=== PATIENT | female | born 2000 | race Caucasian/White ===

== ENCOUNTER 2021-10-01 21:16 | Outpatient (REF) | payer OTHER, SELFPAY ==
[2021-10-01 22:41] LABS: Alanine Aminotransferase* 16 U/L (4-35); Aspartate Amino Transferase* 24 U/L (12-35); Cholesterol* 147 mg/dL (90-199); Triglycerides* 149 mg/dL (40-149)
[2021-10-01 22:42] LABS: HDL Cholesterol* 44 mg/dL (>=50); LDL Cholesterol Calculated 73 mg/dL (<100)
[2021-10-01 23:00] LABS: Basophils Absolute Auto 0.02 K/uL (0.00-0.30); Basophils Percent Auto 0.3 % (0.0-3.0); Eosinophils Absolute Auto 0.21 K/uL (0.00-0.50); Eosinophils Percent Auto 2.6 % (0.0-7.0); Hematocrit 40.5 % (33.0-51.0); Hemoglobin* 13.3 gm/dL (12.0-16.0); Immature Granulocytes Abs Auto 0.01 K/uL (0.00-0.30); Lymphocytes Absolute Auto 2.13 K/uL (0.90-2.90); Lymphocytes Percent Auto 26.7 % (20-44); Mean Corpuscular HGB Conc 33 gm/dL (32-36); Mean Corpuscular Hemoglobin 30 pg (26-34); Mean Corpuscular Volume 90 fL (80-100); Monocytes Percent Auto 4.8 % (0.0-11.0); Neutrophils Absolute Auto 5.23 K/uL (1.7-7.0); Neutrophils Percent Auto 65.5 % (42.0-72.0); Platelet Count* 288 K/uL (140-440); Red Blood Count 4.48 m/uL (4.00-5.20); White Blood Count* 7.98 K/uL (4.50-11.00)
[2021-10-01 23:02] LABS: Slide Review Reflex No
[2021-10-01 23:03] LABS: HCG Quantitative* < 2.39 mIU/mL
== END 2021-10-01 21:17 | disposition home or self-care (01) ==
LOC: NPINS 21:16
PROVIDERS: PCP Physician Assistant Medical
DX: Z79.899 Other long term (current) drug therapy (principal)
CPT/HCPCS: 80061; 84450; 84460; 84702; 85025

== ENCOUNTER 2021-10-28 21:28 | Outpatient (RCR) | payer OTHER, SELFPAY ==
[2021-10-28 22:07] LABS: Alanine Aminotransferase* 17 U/L (4-35); Aspartate Amino Transferase* 21 U/L (12-35); Cholesterol* 150 mg/dL (90-199)
[2021-10-28 22:08] LABS: HDL Cholesterol* 41 mg/dL (>=50); LDL Cholesterol Calculated 67 mg/dL (<100); Triglycerides* 211 mg/dL (40-149)
[2021-10-28 22:13] LABS: Basophils Absolute Auto 0.02 K/uL (0.00-0.30); Basophils Percent Auto 0.3 % (0.0-3.0); Eosinophils Percent Auto 2.5 % (0.0-7.0); Hematocrit 40.8 % (33.0-51.0); Hemoglobin* 13.7 gm/dL (12.0-16.0); Immature Granulocytes Abs Auto 0.04 K/uL (0.00-0.30); Lymphocytes Absolute Auto 1.79 K/uL (0.90-2.90); Lymphocytes Percent Auto 22.4 % (20-44); Mean Corpuscular HGB Conc 34 gm/dL (32-36); Mean Corpuscular Hemoglobin 30 pg (26-34); Mean Corpuscular Volume 89 fL (80-100); Monocytes Percent Auto 4.6 % (0.0-11.0); Neutrophils Absolute Auto 5.57 K/uL (1.7-7.0); Neutrophils Percent Auto 69.7 % (42.0-72.0); Platelet Count* 312 K/uL (140-440); Red Blood Count 4.57 m/uL (4.00-5.20); White Blood Count* 7.99 K/uL (4.50-11.00)
[2021-10-28 22:22] LABS: Slide Review Reflex No
[2021-10-29 16:57] LABS: HCG Qualitative Serum* Negative (Negative)
[2022-03-14 22:48] LABS: Ur HCG Qualitative* Negative (Negative)
== END 2022-09-29 23:00 | disposition home or self-care (01) ==
LOC: NPINS 21:28
PROVIDERS: Physician Assistant Medical; PCP Physician Assistant Medical; Visit Provider Physician Assistant Medical
DX: L70.0 Acne vulgaris (principal); Z13.6 Encounter for screening for cardiovascular disorders; Z79.899 Other long term (current) drug therapy
CPT/HCPCS: 80061; 81025; 84450; 84460; 84703; 85025

== ENCOUNTER 2021-11-26 15:34 | Outpatient (RCR) | payer OTHER, SELFPAY ==
[2021-11-26 15:59] LABS: Basophils Absolute Auto 0.02 K/uL (0.00-0.30); Basophils Percent Auto 0.3 % (0.0-3.0); Eosinophils Absolute Auto 0.22 K/uL (0.00-0.50); Eosinophils Percent Auto 3.1 % (0.0-7.0); Hematocrit 44.3 % (33.0-51.0); Hemoglobin* 14.8 gm/dL (12.0-16.0); Immature Granulocytes Abs Auto 0.02 K/uL (0.00-0.30); Lymphocytes Absolute Auto 1.79 K/uL (0.90-2.90); Lymphocytes Percent Auto 25.2 % (20-44); Mean Corpuscular HGB Conc 33 gm/dL (32-36); Mean Corpuscular Hemoglobin 30 pg (26-34); Mean Corpuscular Volume 89 fL (80-100); Monocytes Percent Auto 5.5 % (0.0-11.0); Neutrophils Absolute Auto 4.65 K/uL (1.7-7.0); Neutrophils Percent Auto 65.6 % (42.0-72.0); Platelet Count* 310 K/uL (140-440); RDW Coefficient of Variation % 11.7 % (11.5-15.5); Red Blood Count 4.97 m/uL (4.00-5.20); White Blood Count* 7.09 K/uL (4.50-11.00)
[2021-11-26 16:02] LABS: Slide Review Reflex No
[2021-11-26 16:14] LABS: Alanine Aminotransferase* 18 U/L (4-35); Aspartate Amino Transferase* 28 U/L (12-35); Cholesterol* 165 mg/dL (90-199); HDL Cholesterol* 41 mg/dL (>=50); LDL Cholesterol Calculated 89 mg/dL (<100); Triglycerides* 177 mg/dL (40-149)
[2021-11-26 16:23] LABS: HCG Qualitative Serum* Negative (Negative)
== END 2022-10-30 11:50 | disposition home or self-care (01) ==
LOC: LAB 15:34
PROVIDERS: PCP Physician Assistant Medical; Visit Provider Physician Assistant Medical
DX: Z79.899 Other long term (current) drug therapy (principal)
CPT/HCPCS: 36415; 80061; 84450; 84460; 84703; 85025

== ENCOUNTER 2021-12-24 16:04 | Outpatient (CLI) | payer OTHER, SELFPAY | END 2021-12-24 16:05 | disposition home or self-care (01) | LOC: FRMREF 01-03 10:10 | PROVIDERS: PCP Physician Assistant Medical; Visit Provider Physician Assistant Medical | DX: Z79.899 Other long term (current) drug therapy (principal) | CPT/HCPCS: 80061; 84450; 84460 ==

== ENCOUNTER 2022-03-14 14:19 | Outpatient (CLI) | payer OTHER, SELFPAY ==
[2022-03-14 22:03] LABS: Chloride* 106 mmol/L (96-114)
[2022-03-14 22:04] LABS: Potassium* 4.3 mmol/L (3.6-5.1); Sodium* 138 mmol/L (135-149)
[2022-03-14 22:06] LABS: Bilirubin Total* 0.3 mg/dL (0.1-1.5); Carbon Dioxide* 26 mmol/L (20-32); Creatinine* 0.8 mg/dL (0.5-1.5); Estimated Glomerular Filt Rate 106 ml/min
[2022-03-14 22:07] LABS: Alanine Aminotransferase* 17 U/L (4-35); Alkaline Phosphatase* 77 U/L (40-150); Aspartate Amino Transferase* 22 U/L (12-35); Blood Urea Nitrogen* 17 mg/dL (5-24); Glucose* 139 mg/dL (60-115)
[2022-03-14 22:08] LABS: Calcium* 9.2 mg/dL (8.4-10.6)
== END 2022-03-14 14:20 | disposition home or self-care (01) ==
PROVIDERS: PCP Physician Assistant Medical; Visit Provider Physician Assistant Medical
DX: R00.2 Palpitations (principal); E10.9 Type 1 diabetes mellitus without complications; R51.9 Headache, unspecified
CPT/HCPCS: 80053; 84443

== ENCOUNTER 2022-03-14 21:56 | Outpatient (REF) | payer OTHER, SELFPAY | END 2022-03-14 21:57 | disposition home or self-care (01) | LOC: NPINS 21:56 | PROVIDERS: PCP Physician Assistant Medical; Visit Provider Physician Assistant Medical | DX: L70.0 Acne vulgaris (principal) | CPT/HCPCS: 81025 ==

== ENCOUNTER 2022-03-28 07:52 | Outpatient (CLI) | payer OTHER, SELFPAY | END 2022-03-28 07:53 | disposition home or self-care (01) | LOC: RAD 07:54 | PROVIDERS: PCP Physician Assistant Medical; Visit Provider Physician Assistant Medical | DX: R00.2 Palpitations (principal) | CPT/HCPCS: 93306; Q9957 ==

== ENCOUNTER 2022-04-15 12:15 | Outpatient (RCR) | payer OTHER, SELFPAY | END 2022-09-18 23:59 | disposition home or self-care (01) | PROVIDERS: PCP Physician Assistant Medical; Visit Provider Physician Assistant Medical | DX: M41.9 Scoliosis, unspecified (principal); Z51.89 Encounter for other specified aftercare | CPT/HCPCS: 97110; 97140; 97161; Q9957 ==

== ENCOUNTER 2023-03-13 09:46 | Outpatient (CLI) | payer OTHER, SELFPAY ==
--- OUTSIDE RECORDS SUMMARY | 2023-03-13 09:51 | XMS_ITS | Clinical Summary ---
Author Name Unknown Organization [facility] Address [place], [place] [address] Care Team Providers Care Heavy Equipment Technician Name Role Phone Clinic, No Pcp Or Primary Care Provider Yosvanya Marquise Wheat MD Unavailable [phone] Allergies No known active allergies Medications Medication Sig Dispensed Refills Start Date End Date Status olopatadine (PATADAY) 0.2 % ophthalmic solutionIndications:All ergic conjunctivitis of right eye PLACE 1 DROP INTO BOTH EYES ONCE DAILY 7.5 mL 2 01/14/2021 Active desogestrel-ethinyl estradiol 0.15-30 mg-mcg (Apri) tablet 0 Refill(s) 0 03/30/2018 Active loratadine (Claritin) 10 mg tablet 1 tab twice daily 0 07/26/2021 Active Baqsimi 3 mg/actuation nasal sprayIndications:Diabet es mellitus type 1, controlled, without complications (HC) USE NEEDED FOR GLUCOSE < 60 2 Each 0 01/14/2022 Active Dexcom G6 Sensor for continuous blood glucose monitor (CGM)Indications:Diabet es mellitus type 1, controlled, without complications (HC) Replace every 10 days 9 Each 3 03/11/2022 Active Dexcom G6 Transmitter for continuous blood glucose monitor (CGM)Indications:Diabet es mellitus type 1, controlled, without complications (HC) Replace every 3 months 1 Each 3 03/11/2022 Active nortriptyline (PAMELOR) 10 mg capsule Take 1 Capsule by mouth at bedtime. 0 03/14/2022 Active insulin aspart, niacinamide, (Fiasp U-100 Insulin) 100 unit/mL injectionIndications:Di abetes mellitus type 1, controlled, without complications (HC) Up to 60 units daily via pump 60 mL 3 04/15/2022 Active Accu-Chek Guide test strips stripIndications:Diabet es mellitus type 1, controlled, without complications (HC) Daily as needed. 100 Each 3 08/20/2022 Active topiramate (TOPAMAX) 50 mg tablet Take 50 mg by mouth two times daily. 0 07/30/2022 Active cholecalciferol (Vitamin D) 1,000 unit capsule Take 1 Capsule (1,000 units) by mouth once daily. 0 Active Uohvo-9-VGC-EPA-Fish Oil (Fish OiL) 1,000 mg (120 mg-180 mg) cap Take 1 Capsule (1,000 mg) by mouth once daily. 0 08/25/2022 Active Hair,Skin and Nails tablet Take 1 Tablet by mouth once daily. 0 08/25/2022 Active ashwagandha root extract 500 mg cap Take 1 Capsule by mouth once daily. 0 08/25/2022 Active insulin pump cart,automated,BT (Omnipod 5 G6 Pods, Gen 5,) crtgIndications:Diabete s mellitus type 1, controlled, without complications (HC) CHANGE EVERY 2 DAYS 45 Each 3 11/13/2022 Active Accu-Chek Guide Glucose MeterIndications:Diabet es mellitus type 1, controlled, without complications (HC) Dispense glucose meter, test strips and lancets covered by the patient insurance. Test 4 times per day. 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 03/04/2018 Ingrowing nail 02/22/2008 Family History Medical History Relation Name Comments Other Maternal Grandfather macular degeneration Relation Name Status Comments Maternal Grandfather Social History Tobacco Use Types Packs/Day Years Used Date Smoking Tobacco: Never Smokeless Tobacco: Never Comments:non smoking hiome Alcohol Use Standard Drinks/Week Comments Not Asked 0 (1 standard drink = 0.6 oz pur e alcohol) Social Connections Answer Date Recorded Frequency of Communication with Friends and Fami ly Not on file 03/21/2021 Financial Resource Strain Answer Date R ecorded Difficulty of Paying Living Expenses Not on file 03/21/2021 Difficulty of Paying Living Expenses Not on file 03/21/2021 Sex and Gender Information Value Date Recorded Sex Assigned at Not on file Gender Identity Not on file Sexual Orientation Not on file Obstetrics History Last Filed Vital Signs Vital Sign Reading Time Taken Comments Blood Pressure 106/72 08/25/2022 3:25 PM CDT Pulse 78 08/25/2022 3:25 PM CDT Temperature - - Respiratory Rate 12 08/25/2022 3:25 PM CDT Oxygen Saturation - - Inhaled Oxygen Concentration - - Weight 98 kg (216 lb) 08/25/2022 3:25 PM CDT Height 146.1 cm (4' 9.5) 02/22/2008 10:33 AM CS T Body Mass Index - - Plan of Treatment Upcoming Encounters Date Type Department Care Team (Late st Contact Info) Description 04/03/2023 3:40 PM CAFE TEAM MEMBER Office Visit [facility] [address] [place], [place] [phone] Marquise Nick MD [address] [place] [address] 07/03/2023 10:25 AM CDT Office Visit [facility] [address] [place], [place] [phone] Marquise Nick MD [address] [place], [place] [phone] Health Maintenance Due Date Last Done Comments Hepatitis B series for Diabe miguel ángel (1 of 3 - 3-dose series) 1999 Pneumococcal series for age 6-64 (1 of 2 - PCV) 2005 HPV series for age 9-26 (1 - 2-dose series) 2010 Tdap 2010 Depression screening for age 12+ 2011 HIV for age 15-65 2014 Chlamydia for age 16-24 2015 BMI (ht and wt on same day) for age 18+ 2017 Hepatitis C screening for age 18-79 2017 Tetanus booster 2019 COVID-19 vaccine series ( season) 2022 02/03/2021, 05/30/2020, 05/02/2020 Influenza for age 9-49 10/31/2022 Pap test for age 21-65 07/05/2024 07/05/2021 Care Teams Heavy Equipment Technician Relationship Specialty Start Date End Date Clinic, No Pcp Or . PCP - General 11/26/20 Marquise Nick MD [address] [facility] [address] [place] [address] Endocrinology Endocrinology 04/10/22
== END 2023-03-13 09:47 | disposition home or self-care (01) ==
LOC: FRMREF 09:50
PROVIDERS: PCP Physician Assistant Medical; Visit Provider Physician Assistant Medical
DX: N92.6 Irregular menstruation, unspecified (principal); E10.9 Type 1 diabetes mellitus without complications
CPT/HCPCS: 84443

== ENCOUNTER 2023-06-11 14:44 | Outpatient (CLI) | payer OTHER, SELFPAY ==
--- OUTSIDE RECORDS SUMMARY | 2023-06-11 14:46 | XMS_ITS | Clinical Summary ---
Author Name Unknown Organization [facility] Address [place], [place] [address] Care Team Providers Care Music Leader Name Role Phone Clinic, No Pcp Or Primary Care Provider Unavaila Marqiuse Wheat MD Unavailable [phone] Allergies No known active allergies Medications Medication Sig Dispensed Refills Start Date End Date Status loratadine (Claritin) 10 mg tablet 1 tab twice daily 0 07/26/2021 Activ e Baqsimi 3 mg/actuation nasal sprayIndications:Diabe miguel ángel mellitus type 1, controlled, without complications (HC) USE NEEDED FOR GLUCOSE < 60 2 Each 01/14/2022 Active Accu-Chek Guide test strips stripIndications:Diabe miguel ángel mellitus type 1, controlled, without complications (HC) Daily as needed. 100 Each 3 08/20/2022 Active topiramate (TOPAMAX) 50 mg tablet Take 50 mg by mouth two times daily. 07/30/2022 Active cholecalciferol (Vitamin D) 1,000 unit capsule Take 1 Capsule (1,000 units) by mouth once daily. 0 Active Rvthm-7-QQG-EPA-Fish Oil (Fish OiL) 1,000 mg (120 mg-180 mg) cap Take 1 Capsule (1,000 mg) by mouth once daily. 0 08/25/2022 Active Hair,Skin and Nails tablet Take 1 Tablet by mouth once daily. 0 08/25/2022 Active insulin pump cart,automated,BT (Omnipod 5 G6 Pods, Gen 5,) crtgIndications:Diabet es mellitus type 1, controlled, without complications (HC) CHANGE EVERY 2 DAYS 45 Each 3 11/13/2022 Active Accu-Chek Guide Glucose MeterIndications:Diabe miguel ángel mellitus type 1, controlled, without complications (HC) Dispense glucose meter, test strips and lancets covered by the patient insurance. Test 4 times per day. DX Code E10.9 1 Each 01/28/2023 Active Vienva 0.1-20 mg-mcg tablet Take 1 Tablet by mouth once daily. Active mecobalamin (B12 ACTIVE ORAL) Take by mouth. Active Dexcom G6 Sensor for continuous blood glucose monitor (CGM)Indications:Diabe miguel ángel mellitus type 1, controlled, without complications (HC) Replace every 10 days 9 Each 3 04/03/2023 Active insulin lispro-aabc (Lyumjev U-100 Insulin) 100 unit/mL solnIndications:Diabet es mellitus type 1, controlled, without complications (HC) Inject subcutaneous. 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 03/04/2018 Ingrowing nail 02/22/2008 Encounters Date Type Department Care Team Description 04/24/2023 9:00 AM BOOSTER PUMP OPERATOR Office Visit [facility] [address] [place] [address] Irving Suárez OD Eye Exam (CEE/DM) 04/24/2023 Travel 04/04/2023 Refill [facility] [address] [place] [address] Marquise Nick MD Refill Request (Dexcom G6 Transmitter) 04/03/2023 3:40 PM BOOSTER PUMP OPERATOR Office Visit [facility] [address] [place] [address] Marquise Nick MD Diabetes 04/03/2023 Travel 04/01/2023 Refill [facility] [address] [place] [address] Marquise Nick MD Refill Request (Fiasp U-100 Insulin) from Last 3 Months Family History Medical History Relation Name Comments [...] Sign Reading Time Taken Comments Blood Pressure 116/76 04/03/2023 3:46 PM BOOSTER PUMP OPERATOR Pulse 68 04/03/2023 3:46 PM BOOSTER PUMP OPERATOR Temperature - - Respiratory Rate 16 04/03/2023 3:46 PM BOOSTER PUMP OPERATOR Oxygen Saturation - - Inhaled Oxygen Concentration - - Weight 100.1 kg (220 lb 11.2 oz) 04/03/2023 3:46 PM BOOSTER PUMP OPERATOR Height 146.1 cm (4' 9.5) 02/22/2008 10 :33 AM BOOSTER PUMP OPERATOR Body Mass Index - - Plan of Treatment Upcoming Encounters Date Type Department Care Team (Late st Contact Info) Description 07/03/2023 10:25 AM CDT Office Visit [facility] [address] [place] [address] Marquise Nick MD [address] [place] [address] 11/03/2023 8:20 AM CDT Office Visit [facility] [address] [place] [address] Marquise Nick MD [address] [place], [place] [phone] 02/02/2024 8:20 AM BOOSTER PUMP OPERATOR Office Visit [facility] [address] [place], [place] [phone] Marquise Nick MD [address] [place] [address] Health Maintenance Due Date Last Done Comments Pneumococcal series for age 6-64 (1 of 2 - PCV) 2005 Tdap 2010 Depression screening for age 12+ 2011 HIV for age 15-65 2014 HPV series for age 9-26 (1 - 3-dose series) 2014 Chlamydia for age 16-24 2015 BMI (ht and wt on same day) for age 18+ 2017 Hepatitis C screening for age 18-79 2017 Hepatitis B series for Diabe miguel ángel (1 of 3 - 19+ 3-dose series) 2018 Tetanus booster 2019 COVID-19 vaccine series ( season) 2022 02/03/2021, 05/30/2020, 05/02/2020 Influenza for age 9-49 11/01/2023 Pap test for age 21-65 07/05/2024 07/05/2021 Procedures Procedure Name Priority Date/Time Associated Diagnosis Comments URINE ALBUMIN TO CREATININE RATIO, RANDOM Routine 04/03/2023 3:38 PM BOOSTER PUMP OPERATOR Diabetes mellitus type 1, controlled, without complications (HC) VITAMIN B12 Add On 04/03/2023 3:35 PM BOOSTER PUMP OPERATOR Peripheral polyneuropathy BASIC METABOLIC PANEL Add On 04/03/2023 3:35 PM BOOSTER PUMP OPERATOR Diabetes mellitus type 1, controlled, without complications (HC) LIPID PANEL W REFLEX MEASURED LDL Routine 04/03/2023 3:35 PM BOOSTER PUMP OPERATOR Diabetes mellitus type 1, controlled, without complications (HC) HEMOGLOBIN A1C Routine 04/03/2023 3:35 PM BOOSTER PUMP OPERATOR Diabetes mellitus type 1, controlled, without complications (HC) GLUCOSE, RANDOM Routine 04/03/2023 3:35 PM BOOSTER PUMP OPERATOR Diabetes mellitus type 1, controlled, without complications (HC) COATER THIN PREP PAP SCREEN IMAGED Routine 07/05/2021 3:15 PM CDT from Last 3 Months or Most Recently Relevant to Health Maintenance Results * URINE ALBUMIN TO CREATININE RATIO, RANDOM (04/03/2023 3:38 PM BOOSTER PUMP OPERATOR) ALB RAND URINE <12.0 mg/L 04/03/2023 10:48 PM BOOSTER PUMP OPERATOR [facility] CREATININE,URINE 2.08 g/L 04/03/19 24 10:48 PM BOOSTER PUMP OPERATOR [facility] ALBUMIN TO CREATININE RATIO,RAND UR 04/03/2023 10:48 PM BOOSTER PUMP OPERATOR [facility] Comment:Urine Albumin below measurement range, unable to calculate. Urine URINE SPECIMEN / Unknown Non-Blood / Unknown 04/03/2023 3:38 PM BOOSTER PUMP OPERATOR 04/03/2023 3:47 PM BOOSTER PUMP OPERATOR Narrative [facility] - 04/03/2023 10:48 PM BOOSTER PUMP OPERATOR If Albumin to Creatinine Ratio is elevated, consider the following: ? Elevations seen with incipient nephropathy associated ?? with diabetes mellitus or hypertension. Stress, exercise,hematuria, ?? and urinary tract infection may also produce elevated results. If clinically indicated, confirm with ?24 Hour Albumin to Creatinine Ratio. ?? Marquise Nick MD URINE [facility] [address] [place] [address], * LIPID PANEL W REFLEX MEASURED LDL (04/03/2023 3:35 PM BOOSTER PUMP OPERATOR) CHOLESTEROL,TOTAL 139 100 - 199 mg/dL 04/03/2023 4:13 PM BOOSTER PUMP OPERATOR [facility] Comment: Cholesterol, Total Reference Ranges Desirable <200 mg/dL Borderline 200-239 mg/dL High >=240 mg/dL TRIGLYCERIDES 71 <150 mg/dL 04/03/2023 4:13 PM BOOSTER PUMP OPERATOR [facility] HDL CHOLESTEROL 49 >40 mg/dL 4:13 PM BOOSTER PUMP OPERATOR [facility] NON-HDL CHOLESTEROL 90 <145 mg/dl 04/03/2023 4:13 PM [facility] CHOL/HDL RATIO 2.84 <4.50 04/03/2023 4:13 PM BOOSTER PUMP OPERATOR [facility] LDL CHOLESTEROL 76 <=130 mg/dL 04/03/2023 4:13 PM [facility] VLDL CHOLESTEROL 14 <=30 mg/dL 04/03/2023 4:13 PM BOOSTER PUMP OPERATOR [facility] PROVIDER ORDERED STATUS RANDOM 04/03/2023 4:13 PM BOOSTER PUMP OPERATOR [facility] Blood BLOOD SPECIMEN / Unknown Butterfly / Unknown 04/03/2023 3:35 PM BOOSTER PUMP OPERATOR 04/03/2023 3:35 PM BOOSTER PUMP OPERATOR Marquise Nick MD CHEMISTRY [facility] SENDOUT INTERNAL ZIP [address] [place] [id number] * (ABNORMAL) GLUCOSE, RANDOM (04/03/2023 3:35 PM BOOSTER PUMP OPERATOR) GLUCOSE,RANDOM 197(H) 70 - 139 mg/dL 04/03/2023 3:37 PM BOOSTER PUMP OPERATOR [facility] Blood BLOOD SPECIMEN / Unknown Butterfly / Unknown 04/03/2023 3:35 PM BOOSTER PUMP OPERATOR 04/03/2023 3:35 PM BOOSTER PUMP OPERATOR Marquise Nick MD CHEMISTRY [facility] [address] [facility] [address] [place] [address], * (ABNORMAL) HEMOGLOBIN A1C MONITORING (POCT) (04/03/2023 3:35 PM BOOSTER PUMP OPERATOR) HEMOGLOBIN A1C MONITORING (POCT) 6.8(H) <=6.4 % 04/03/2023 3:44 PM BOOSTER PUMP OPERATOR [facility] Blood BLOOD SPECIMEN / Unknown Butterfly / Unknown 04/03/2023 3:35 PM BOOSTER PUMP OPERATOR 04/03/2023 3:35 PM BOOSTER PUMP OPERATOR Narrative [facility] - 04/03/2023 3:44 PM BOOSTER PUMP OPERATOR ? (<=6.9%) ? Indicates good control ? (7.0% to 7.9%) ? Indicates fair control ? (>=8.0%) ? Indicates poor control ?? NOTE: ??These thresholds are guidelines and ?individual targets may vary. Falsely low levels may be seen with: Recent Transfusion, Recent Significant Blood Loss, Hemolytic Diseases, or Falsely elevated levels may be seen with: Untreated Anemias, Splenectomy ? Marquise Nick MD CHEMISTRY Performing Organization Address [facility] Co de Phone Number [facility] SENDOUT INTERNAL [facility] [place] [address] * (ABNORMAL) VITAMIN B12 (04/03/2023 3:35 PM BOOSTER PUMP OPERATOR) Pathologist [facility] VITAMIN B12 1,967(H) 232 - 1,245 pg/mL 04/03/2023 9:49 PM BOOSTER PUMP OPERATOR [facility] Blood BLOOD SPECIMEN / Unknown Butterfly / Unknown 04/03/2023 3:35 PM BOOSTER PUMP OPERATOR 04/03/2023 3:35 PM BOOSTER PUMP OPERATOR Narrative [facility] - 04/03/2023 9:49 PM BOOSTER PUMP OPERATOR Biotin supplements may cause clinically significant interference for this test assay. ??If interference is suspected, it is strongly recommended that biotin is discontinued for at least one week prior to retesting. Marquise Nick MD CHEMISTRY [facility] [address] * (ABNORMAL) BASIC METABOLIC PANEL (04/03/2023 3:35 PM BOOSTER PUMP OPERATOR) Pathologist [facility] SODIUM 142 136 - 145 mmol/L 04/03/2023 5:48 PM BOOSTER PUMP OPERATOR [facility] POTASSIUM 4.0 3.5 - 5.1 mmol/L 04/03/2023 5:48 PM [facility] CHLORIDE 109(H) 98 - 107 mmol/L 04/03/2023 5:48 PM [facility] CO2,TOTAL 19(L) 22 - 29 mmol/L 04/03/2023 5:48 PM [facility] ANION GAP 14 5 - 18 04/03/2023 5:48 PM [facility] GLUCOSE 197(H) 70 - 99 mg/dL 04/03/2023 5:48 PM [facility] CALCIUM 9.5 8.6 - 10.0 mg/dL 04/03/2023 5:48 PM [facility] BUN 16 6 - 20 mg/dL 04/03/2023 5:48 PM [facility] CREATININE 0.90 0.50 - 0.90 mg/dL 04/03/2023 5:48 PM [facility] BUN/CREAT RATIO 18 10 - 20 5:48 PM [facility] eGFR >90 >90 mL/min/1.7 3m2 04/03/2023 5:48 PM [facility] Comment:As of 2021, eG FR is calculated by the CKD-EPI creatinine equation without race adjustment. ??eGFR can be influenced by muscle mass, exercise, and diet. ??The reported eGFR is an estimation only and is only applicable if the renal function is stable. Blood BLOOD SPECIMEN / Unknown Butterfly / Unknown 04/03/2023 3:35 PM BOOSTER PUMP OPERATOR 04/03/2023 3:35 PM [facility] Marquise Nick MD CHEMISTRY [facility] SENDOUT INTERNAL ZIP [phone] [place] [address] * COATER THIN PREP PAP SCREEN IMAGED (07/05/2021 3:15 PM CDT) Case Report Gynecologic Cytology Report ? Case: [id number] ? Authorizing Provider: ??Nahum Garcia, CHRISTINE ? Collected: ? 07/05/2021 1515 ? Ordering Location: ? [facility] ?Received: ?07/10/2021 0749 ? First Screen: ?Alessandra Freeman ? Specimen: ?COATER ThinPrep Vial Screening, Cervical/Vaginal ? 07/22/2021 3:47 PM CDT [facility] INTERPRETATION /RESULT NEGATIVE FOR INTRAEPITHELIAL LESION OR MALIGNANCY (NIL) (none) 07/22/2021 3:47 PM CDT [facility] IMEN ADEQUACY Satisfactory for evaluation Endocervical component present 07/22/2021 3:47 PM CDT [facility] HPV REQUEST HPV if ASCUS 07/22/2021 3:47 PM CDT [facility] Date of LMP 06/17/2021 07/22/2021 3:47 PM CDT [facility] Menstrual Status 07/22/2021 3:47 PM CDT [facility] Comment:OCP Additional Information 07/22/2021 3:47 PM CDT [facility] Comment: Interpreted at [facility] - [address], [place] [address] Automated Review Failed 07/22/2021 3:47 PM CDT [employer] [facility] Comment:Processing failed, m anual screening required. ThinPrep Imaging System, [employer] Note The pap test is a screening technique, not a diagnostic procedure. It is used primarily to screen for squamous cancers and precursor lesions. Published studies have shown that it is subject to both false negative and false positive results. The pap test should not be used as the sole means to diagnose or exclude pre-malignant and malignant lesions. 07/22/2021 3:47 PM CDT [employer] [facility] Other (Cervical/Vagina l) 07/05/2021 3:15 PM CDT 07/10/2021 7:49 AM CDT Nahum Garcia PA-C PATHOLOGY/CYTOLOGY [employer] [facility] [address] [place] [address], [place] from Last 3 Months or Most Recently Relevant to Health Maintenance Care Teams Music Leader Relationship Specialty Start Date End Date Clinic, No Pcp Or . PCP - General 11/26/20 Marquise Nick MD [address] [place] [address] Endocrinology Endocrinology 04/10/22
--- NOTE | 2023-06-11 15:00 | US_ITS ---
Patient: CARRI PALOMINO Facility:?[facility] Patient ID:?[id number] Site Patient ID:?[id number]. Site :?[id number] Study:?US-OB Pelvis TA/TV Pelvic US-06/11/2023 4:14:07 PM Ordering Physician:?Nahum Garcia Final Report: INDICATION: Abnormal uterine bleeding COMPARISON: none TECHNIQUE: 2D hawley scale and color Doppler images were acquired of the pelvis using a transabdominal and transvaginal approach. FINDINGS: Sonographic images demonstrate a normal size and smooth outer contour of the uterus. Uterus measures 6.3 cm in length by 2.3 cm in AP diameter by 4.2 cm in transverse dimension. Small cyst lower uterine segment is present, measuring 8 x 3 x 5 millimeters. The endometrial lining appears normal and measures 3.9 mm in composite thickness. The right ovary measures 5.1 x 3.4 x 2.9 cm in size and the left ovary measures 4.5 x 2.8 x 2.8 cm. Right ovarian volume 25.5 cc. Left ovarian volume 18.1 cc. The ovaries demonstrate normal arterial and venous blood flow on color Doppler analysis. There are no suspicious fluid collections within the cul-de-sac. IMPRESSION: Endometrial thickness 3.9 millimeters. Possible PCOS. Dictated by Zia Bowden MD @ 06/12/2023 9:14:44 AM Signed by:?Zia Bowden MD @06/12/2023 9:14:44 AM (Electronic Signature)
== END 2023-06-11 14:45 | disposition home or self-care (01) ==
LOC: US 14:45
PROVIDERS: PCP Physician Assistant Medical; Visit Provider Physician Assistant Medical
DX: N91.2 Amenorrhea, unspecified (principal); R93.89 Abnormal findings on diagnostic imaging of other specified body structures
CPT/HCPCS: 76830; 76856

== ENCOUNTER 2023-08-21 09:08 | Outpatient (CLI) | payer OTHER, SELFPAY ==
--- OUTSIDE RECORDS SUMMARY | 2023-08-21 09:12 | XMS_ITS | Clinical Summary ---
Author Organization [facility] Address [place], [place] [address] Care Team Providers Care Ux Design Lead Name Role Phone Clinic, No Pcp Or Primary Care Provider Unavaila Marquise Wheat MD Unavailable [phone] Allergies No known active allergies Medications Medication Sig Dispensed Refills Start Date End Date Status loratadine (Claritin) 10 mg tablet 1 tab twice daily 0 07/26/2021 Active topiramate (TOPAMAX) 50 mg tablet Take 50 mg by mouth two times daily. 07/30/2022 Active cholecalciferol (Vitamin D) 1,000 unit capsule Take 1 Capsule (1,000 units) by mouth once daily. 0 Active Jfogs-8-ZVY-EPA-Fish Oil (Fish OiL) 1,000 mg (120 mg-180 mg) cap Take 1 Capsule (1,000 mg) by mouth once daily. 0 08/25/2022 Active Hair,Skin and Nails tablet Take 1 Tablet by mouth once daily. 0 08/25/2022 Active insulin pump cart,automated,BT (Omnipod 5 G6 Pods, Gen 5,) crtgIndications:Diab etes mellitus type 1, controlled, without complications (HC) CHANGE EVERY 2 DAYS 45 Each 3 11/13/2022 Active Accu-Chek Guide Glucose MeterIndications:Sania betes mellitus type 1, controlled, without complications (HC) Dispense glucose meter, test strips and lancets covered by the patient insurance. Test 4 times per day. DX Code E10.9 1 Each 01/28/2023 Active mecobalamin (B12 ACTIVE ORAL) Take by mouth. Active Dexcom G6 Sensor for continuous blood glucose monitor (CGM)Indications:Sania betes mellitus type 1, controlled, without complications (HC) Replace every 10 days 9 Each 3 04/03/2023 Active insulin lispro-aabc (Lyumjev U-100 Insulin) 100 unit/mL solnIndications:Diab etes mellitus type 1, controlled, without complications (HC) Inject subcutaneous. To use up to 60 units per day via insulin pump 60 mL 3 04/03/2023 Active Dexcom G6 Transmitter for continuous blood glucose monitor (CGM)Indications:Sania betes mellitus type 1, controlled, without complications (HC) REPLACE EVERY 3 MONTHS 1 Each 3 04/05/2023 Active levonorgestrel (Mirena) 20 mcg/24 hours (8 yrs) 52 mg intrauterine device (IUD) Inject 1 Device intrauterine every 8 years. 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 03/04/2018 Ingrowing nail 02/22/2008 Encounters Date Type Department Care Team Description 07/03/2023 10:25 AM CDT Office Visit [facility] [address] [place] [address] Marquise Nick MD Follow Up (3 month diabetes ) 07/03/2023 Travel 06/18/2023 Lab Requisition [facility] [phone] Cathie Vega MD from Last 3 Months Family History Medical [...] Sign Reading Time Taken Comments Blood Pressure 120/72 07/03/2023 10:35 AM CDT Pulse 74 07/03/2023 10:35 AM CDT Temperature - - Respiratory Rate 16 07/03/2023 10:35 AM CDT Oxygen Saturation - - Inhaled Oxygen Concentration - - Weight 101.6 kg (224 lb) 07/03/2023 10:35 AM CDT Height 146.1 cm (4' 9.5) 02/22/2008 10:33 AM CS T Body Mass Index - - Plan of Treatment Upcoming Encounters Date Type Department Care Team (Late st Contact Info) Description 12/10/2023 2:25 PM CDT Office Visit [facility] [address] [place] [address] Marquise Nick MD [address] [place] [address] 05/16/2024 10:20 AM CDT Office Visit [facility] [address] [place], [place] [phone] Marquise Nick MD [address] [place], [place] [phone] Health Maintenance Due Date Last Done Comments [...] 2018 Tetanus booster 2019 COVID-19 vaccine series (4 - 2022- season) 2022 02/03/2021, 05/30/2020, 05/02/2020 Influenza for age 9-49 11/01/2023 Pap test for age 21-65 07/05/2024 07/05/2021 Procedures Procedure Name Priority Date/Time Associated Diagnosis Comments VITAMIN B12 Routine 07/03/2023 11:35 AM CDT Peripheral polyneuropathy Vitamin B12 deficiency HEMOGLOBIN A1C Routine 07/03/2023 11:35 AM CDT Diabetes mellitus type 1, controlled, without complications (HC) GLUCOSE, RANDOM Routine 07/03/2023 11:35 AM CDT Diabetes mellitus type 1, controlled, without complications (HC) LAB TRACKING EVENT Routine 06/18/2023 9: 50 AM CDT PATH TISSUE EXAM Routine 06/18/2023 9:50 AM CDT BUSINESS SYSTEMS CONSULTANT THIN PREP PAP SCREEN IMAGED Routine 07/05/2021 3:15 PM CDT from Last 3 Months or Most Recently Relevant to Health Maintenance Results * GLUCOSE, RANDOM (07/03/2023 11:35 AM CDT) GLUCOSE,RANDOM 128 70 - 139 mg/dL 07/03/2023 12:41 PM CDT [facility] Blood BLOOD SPECIMEN / Unknown Butterfly / Unknown 07/03/2023 11:35 AM CDT 07/03/2023 11:38 AM CDT Marquise Nick MD CHEMISTRY [facility] [address] [address] [address] [place] [address] * (ABNORMAL) HEMOGLOBIN A1C MONITORING (POCT) (07/03/2023 11:35 AM CDT) Pathologist [facility] HEMOGLOBIN A1C MONITORING (POCT) 7.1(H) <=6.4 % 07/03/2023 11:56 AM CDT [facility] Blood BLOOD SPECIMEN / Unknown Butterfly / Unknown 07/03/2023 11:35 AM CDT 07/03/2023 11:38 AM CDT Narrative [facility] - 07/03/2023 11:56 AM CDT ? (<=6.9%) ? Indicates good control ? (7.0% to 7.9%) ? Indicates fair control ? (>=8.0%) ? Indicates poor control ?? NOTE: ??These thresholds are guidelines and ?individual targets may vary. Falsely low levels may be seen with: Recent Transfusion, Recent Significant Blood Loss, Hemolytic Diseases, or Falsely elevated levels may be seen with: Untreated Anemias, Splenectomy ? Marquise Nick MD CHEMISTRY [facility] [address] [place], [place] [id number] * (ABNORMAL) VITAMIN B12 (07/03/2023 11:35 AM CDT) Pathologist [facility] VITAMIN B12 >4,000(H) 232 - 1,245 pg/mL 07/03/2023 4:55 PM CDT [facility] Blood BLOOD SPECIMEN / Unknown Butterfly / Unknown 07/03/2023 11:35 AM CDT 07/03/2023 11:38 AM CDT Narrative [facility] - 07/03/2023 4:55 PM CDT Biotin supplements may cause clinically significant interference for this test assay. ??If interference is suspected, it is strongly recommended that biotin is discontinued for at least one week prior to retesting. Marquise Nick MD CHEMISTRY Performing Organization Address [facility] de Phone Number [facility] [address] [place] [address], * LAB TRACKING EVENT (06/18/2023 9:50 AM CDT) Other (Other) Client Collect / Unknown 06/18/2023 9:50 AM CDT 06/18/2023 4:02 PM CDT Cathie Vega MD LAB BILL ONLY Performing Organization Address [facility] de Phone Number [facility] [address] [place] [address], * PATH TISSUE EXAM (06/18/2023 9:50 AM CDT) Case Report Pathology Report ?Case: [id number] ? Authorizing Provider: ??Cathie Vega MD ?? Collected: ? 06/18/2023 0950 ? Ordering Location: ? [facility] ?Received: ?06/18/2023 1814 ? Pathologist: ? Zia Holcomb MD ? Specimen: ?Endometrial Biopsy ? 06/19/2023 12:15 PM CDT [facility] Final Diagnosis A) ENDOMETRIUM, BIOPSY: 1. Predominantly mucous with scant inactive endometrium 2. Negative for chronic endometritis 3. Negative for hyperplasia, atypia, and malignancy 06/19/2023 12:15 PM CDT [facility] Clinical Information Uterine cyst 06/19/2023 12:15 PM CDT [facility] Gross Description A) Received in formalin, labeled with the patient's name and endobiopsy, is a 2.7 x 2.0 x 0.3 cm aggregate of pink-curtis mucosa admixed with clotted blood and mucous. The specimen is entirely submitted in 1 cassette. TMO 06/18/2023 06/19/2023 12:15 PM CDT [facility] Microscopic Description The final diagnosis is based on microscopic examination of appropriate sections of all specimens. 06/19/2023 12:15 PM CDT [facility] Additional Information Interpreted at [facility] - [address] [place] [address] 06/19/2023 12:15 PM CDT [facility] Other (Endometrial Biopsy) 06/18/2023 9:50 AM CDT 06/18/2023 6:14 PM CDT Cathie Vega MD PATHOLOGY/CYTOLOG Y [facility] [address] [place] [address], * BUSINESS SYSTEMS CONSULTANT THIN PREP PAP SCREEN IMAGED (07/05/2021 3:15 PM CDT) Case Report Gynecologic Cytology Report ? Case: [id number] ? Authorizing Provider: ??Nahum Garcia PA-C ? Collected: ? 07/05/2021 1515 ? Ordering Location: ? [facility] ?Received: ?07/10/2021 0749 ? First Screen: ?Alessandra Freeman ? Specimen: ?BUSINESS SYSTEMS CONSULTANT ThinPrep Vial Screening, Cervical/Vaginal ? 07/22/2021 3:47 PM CDT [facility] INTERPRETATION /RESULT NEGATIVE FOR INTRAEPITHELIAL LESION OR MALIGNANCY (NIL) (none) 07/22/2021 3:47 PM CDT [facility] IMEN ADEQUACY Satisfactory for evaluation Endocervical component present 07/22/2021 3:47 PM CDT [facility] HPV REQUEST HPV if ASCUS 07/22/2021 3:47 PM CDT [facility] Date of LMP 06/17/2021 07/22/2021 3:47 PM CDT [facility] Menstrual Status 07/22/2021 3:47 PM CDT [facility] Comment:OCP Additional Information 07/22/2021 3:47 PM CDT [facility] Comment: Interpreted at [facility] Laboratory - [address], [place] [address] Automated Review Failed 07/22/2021 3:47 PM CDT [facility] Comment:Processing failed, m anual screening required. ThinPrep Imaging System, [email or web address] Note The pap test is a [...] and malignant lesions. 07/22/2021 3:47 PM CDT [facility] Other (Cervical/Vagina l) 07/05/2021 3:15 PM CDT 07/10/2021 7:49 AM CDT Nahum Garcia PA-C PATHOLOGY/CYTOLOGY [facility] [address] [place] [address], from Last 3 Months or Most Recently Relevant to Health Maintenance Care Teams Ux Design Lead Relationship Specialty Start Date End Date Clinic, No Pcp Or . PCP - General 11/26/20 Marquise Nick MD [address] [facility] [address] [place] [address] Endocrinology Endocrinology 04/10/22
== END 2023-08-21 09:09 | disposition home or self-care (01) ==
PROVIDERS: PCP Physician Assistant Medical; Visit Provider Obstetrics & Gynecology
DX: N91.2 Amenorrhea, unspecified (principal); Z13.6 Encounter for screening for cardiovascular disorders
CPT/HCPCS: 80061; 83001

== ENCOUNTER 2023-12-21 22:56 | Outpatient (REF) | payer OTHER, SELFPAY ==
--- OUTSIDE RECORDS SUMMARY | 2023-12-21 22:59 | XMS_ITS | Clinical Summary ---
Author Organization [employer] [facility] Address [place], [place] [address] Care Team Providers Care Manager Wound Care Name Role Phone Clinic, No Pcp Or Primary Care Provider Yosvanya Marquise Wheat MD Unavailable [phone] Allergies No known active allergies Medications Medication Sig Dispensed Refills Start Date End Date Status loratadine (Claritin) 10 mg tablet 1 tab twice daily 0 2 Active topiramate (TOPAMAX) 50 mg tablet Take 50 mg by mouth two times daily. 3 Active cholecalciferol (Vitamin D) 1,000 unit capsule Take 1 Capsule (1,000 units) by mouth once daily. 0 Active Hair,Skin and Nails tablet Take 1 Tablet by mouth once daily. 0 3 Active mecobalamin (B12 ACTIVE ORAL) Take by mouth. Active Dexcom G6 Sensor for continuous blood glucose monitor (CGM)Indications: Diabetes mellitus type 1, controlled, without complications (HC) Replace every 10 days 9 Each 3 4 Active insulin lispro-aabc (Lyumjev U-100 Insulin) 100 unit/mL solnIndications:D iabetes mellitus type 1, controlled, without complications (HC) Inject subcutaneous. To use up to 60 units per day via insulin pump 60 mL 3 4 Active Dexcom G6 Transmitter for continuous blood glucose monitor (CGM)Indications: Diabetes mellitus type 1, controlled, without complications (HC) REPLACE EVERY 3 MONTHS 1 Each 3 4 Active levonorgestrel (Mirena) 20 mcg/24 hours (8 yrs) 52 mg intrauterine device (IUD) Inject 1 Device intrauterine every 8 years. 4 Active Accu-Chek Guide test strips stripIndications: Diabetes mellitus type 1, controlled, without complications (HC) 3 times daily as needed for sensor back up 200 Each 11 4 Active Baqsimi 3 mg/actuation nasal sprayIndications: Diabetes mellitus type 1, controlled, without complications (HC) Use as needed for glucose < 60 2 Each 3 4 Active Omnipod 5 G6 Pods, Gen 5, crtgIndications:D iabetes mellitus type 1, controlled, without complications (HC) CHANGE EVERY 2 DAYS 45 Each 3 4 Active Accu-Chek Guide Me Glucose MtrIndications:Di abetes mellitus type 1, controlled, without complications (HC) Glucose meter, test 4 times daily 1 Each 4 Active spironolactone (ALDACTONE) 50 mg tabletIndications :Acne, unspecified acne type Take 1 in the am and 2 at bedtime 4 Active Ecnma-7-TVP-EPA-F marlon Oil (Fish OiL) 1,000 mg (120 mg-180 mg) cap Take 1 Capsule (1,000 mg) by mouth once daily. 0 3 12/10/19 24 Discontinued(*Me d complete/Regimen complete/Level of care change) Accu-Chek Guide Me Glucose MtrIndications:Di abetes mellitus type 1, controlled, without complications (HC) DISPENSE GLUCOSE METER, TEST STRIPS AND LANCETS COVERED BY THE PATIENT INSURANCE. TEST 4 TIMES PER DAY. 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 03/04/2018 Ingrowing nail 02/22/2008 Encounters Date Type Department Care Team Description 12/21/2023 Orders Only [facility] [address] [place] [address] Marquise Nick MD <No scans attached> 12/10/2023 2:25 PM CDT Office Visit [facility] [address] [facility] [address] [place] [address] Marquise Nick MD Diabetes (5 month follow up ) 12/09/2023 Travel 11/22/2023 Refill [facility] [address] [facility] [address] [place] [address] Marquise Nick MD Refill Request (Accu-chek Guide Me Glucose Mtr) 11/20/2023 Refill [facility] [address] [facility] [address] [place] [address] Marquise Nick MD Refill Request (Omnipod 5 G6 Pods (Gen 5)) 10/25/2023 Refill [facility] [address] [facility] [address] [facility] [address] [place] [address] Marquise Nick MD Refill Request (Accu-chek Guide Me Glucose Mtr) 09/29/2023 Refill [facility] [address] [facility] [address] [place] [address] Marquise Nick MD Refill Request (Accu-chek Guide Me Glucose Mtr) from Last 3 Months Family History Medical History Relation Name Comments Other Maternal Grandfather macular degeneration Relation Name Status Comments Maternal Grandfather Social History Tobacco Use Types Packs/Day Years Used Date Smoking Tobacco: Never Smokeless Tobacco: Never Comments:non smoking hiome Alcohol Use Standard Drinks/Week Comments Not Asked 0 (1 standard drink = 0.6 oz pur e alcohol) Financial Resource Strain Answer Date R ecorded Difficulty of Paying Living Expenses Not on file 03/21/2021 Difficulty of Paying Living Expenses Not on file 03/21/2021 Sex and Gender Information Value Date Recorded Sex Assigned at Not on file Gender Identity Not on file Sexual Orientation Not on file Obstetrics History Last Filed Vital Signs Vital Sign Reading Time Taken Comments Blood Pressure 106/56 12/10/2023 2:20 PM CDT Pulse 70 12/10/2023 2:20 PM CDT Temperature - - Respiratory Rate 20 12/10/2023 2:20 PM CDT Oxygen Saturation - - Inhaled Oxygen Concentration - - Weight 104.3 kg (230 lb) 12/10/2023 2:20 PM CDT Height 146.1 cm (4' 9.5) 02/22/2008 10:33 AM CS T Body Mass Index - - Plan of Treatment Upcoming Encounters Date Type Department Care Team (Late st Contact Info) Description 05/16/2024 10:20 AM CDT Office Visit [facility] [address] [place] [address] Marquise Nick MD [address] [place] [address] Health Maintenance Due Date Last Done Comments [...] booster 2019 COVID-19 vaccine series ( season) 2023 02/03/2021, 05/30/2020, 05/02/2020 Influenza for age 9-49 11/01/2023 Pap test for age 21-65 07/05/2024 07/05/2021 Procedures Procedure Name Priority Date/Time Associated Diagnosis Comments HEMOGLOBIN A1C Routine 12/10/2023 2:55 PM CDT ANDROSTENEDIONE ([facility]) Routine 12/10/2023 2:55 PM CDT Acne, unspecified acne type TESTOSTERONE,TOTAL Routine 12/10/2023 2: 55 PM CDT Acne, unspecified acne type VITAMIN B12 Routine 12/10/2023 2:55 PM CDT Vitamin B12 deficiency Peripheral polyneuropathy WATER/WASTEWATER ENGINEER THIN PREP PAP SCREEN IMAGED Routine 07/05/2021 3:15 PM CDT from Last 3 Months or Most Recently Relevant to Health Maintenance Results * ANDROSTENEDIONE (QUEST) (12/10/2023 2:55 PM CDT) Pathologist [facility] ANDROSTENEDIONE 147 ng/dL [facility], Comment: Adult Female Reference Ranges for Androstenedione: ? Mid Follicular: ?51-213 ng/dL ? Surge: ? 73-230 ng/dL ? Mid Luteal: ?73-184 ng/dL ? Postmenopausal Phase: ??20-75 ng/dL This test was developed and its analytical performance characteristics have been determined by [facility]. It has not been cleared or approved by FDA. This assay has been validated pursuant to the CLIA regulations and is used for clinical purposes. Blood BLOOD SPECIMEN / Unknown 12/10/2023 2:55 PM CDT 12/10/2023 2:56 PM CDT Narrative [facility] of Health (NIH) DIAGNOSTICS/[facility] - 12/17/2023 3:53 PM CDT FASTING:NO FASTING: NO Marquise Nick MD SEND OUTS National Institutes of Health (NIH) DIAGNOSTICS/[employer] [facility] [address] [place] [address], [employer] Diagnostics/[facility], [address] [place] [address] * (ABNORMAL) HEMOGLOBIN A1C (12/10/2023 2:55 PM CDT) HEMOGLOBIN A1C 7.3(H) <5.7 % of total Hgb [facility] Comment: For someone without known diabetes, a hemoglobin A1c value of 6.5% or greater indicates that they may have diabetes and this should be confirmed with a follow-up test. For someone with known diabetes, a value <7% indicates that their diabetes is well controlled and a value greater than or equal to 7% indicates suboptimal control. A1c targets should be individualized based on duration of diabetes, age, comorbid conditions, and other considerations. Currently, no consensus exists regarding use of hemoglobin A1c for diagnosis of diabetes for children. ?? 12/10/2023 2:55 PM CDT 12/10/2023 2:56 PM CDT Narrative [facility] - 12/11/2023 3:23 AM CDT FASTING:NO FASTING: NO Marquise Nick MD CHEMISTRY Performing Organization Address [facility] Co de Phone Number [facility] [address] [place] [address], [facility] [address] * TESTOSTERONE,TOTAL (12/10/2023 2:55 PM CDT) [facility] TESTOSTERONE, TOTAL, MS 32 2 - 45 ng/dL [facility] Comment: For additional information, please refer to https://education.[employer]/faq/TotalTestosteroneLCMSMS (This link is being provided for informational/educational purposes only.) (Note) This test was developed and its analytical performance characteristics have been determined by [employer]. It has not been cleared or approved by the FDA. This assay has been validated pursuant to the CLIA regulations and is used for clinical purposes. [facility] [address] [facility] [place] [address],[address] [facility] [address] Garret Vaughn MD, PhD Blood BLOOD SPECIMEN / Unknown 12/10/2023 2:55 PM CDT 12/10/2023 2:56 PM CDT Narrative [facility] - 12/14/2023 3:03 AM CDT FASTING:NO FASTING: NO Marquise Nick MD CHEMISTRY Performing Organization Address [facility] Co de Phone Number [facility] [address] [place] [address], [facility] [address] [place] [address], [address] [place] [address] * (ABNORMAL) VITAMIN B12 (12/10/2023 2:55 PM CDT) Pathologist [facility] VITAMIN B12 1,160(H) 200 - 1,100 pg/mL [employer] [facility]ostics- elif [facility] Blood BLOOD SPECIMEN / Unknown 12/10/2023 2:55 PM CDT 12/10/2023 2:56 PM CDT Narrative [facility] - 12/11/2023 5:59 AM CDT FASTING:NO FASTING: NO Marquise Nick MD CHEMISTRY Performing Organization Address City/[facility] Co de Phone Number [place] [facility] [address] [place] [address], [facility] [address] [place] [phone] * WATER/WASTEWATER ENGINEER THIN PREP PAP SCREEN IMAGED (07/05/2021 3:15 PM CDT) Pathologist [facility] Case Report Gynecologic Cytology Report ? Case: [id number] ? Authorizing Provider: ??Nahum Garcia PA-C ? Collected: ? 07/05/2021 1515 ? Ordering Location: ? [facility] ?Received: ?07/10/2021 0749 ? First Screen: ?Alessandra Freeman ? Specimen: ?WATER/WASTEWATER ENGINEER ThinPrep Vial Screening, Cervical/Vaginal ? 07/22/2021 3:47 PM CDT [facility] INTERPRETATION /RESULT NEGATIVE FOR INTRAEPITHELIAL LESION OR MALIGNANCY (NIL) (none) 07/22/2021 3:47 PM CDT [facility] IMEN ADEQUACY Satisfactory for evaluation Endocervical component present 07/22/2021 3:47 PM CDT [facility] HPV REQUEST HPV if ASCUS 07/22/2021 3:47 PM CDT [facility] Date of LMP 06/17/2021 07/22/2021 3:47 PM CDT [facility] Menstrual Status 07/22/2021 3:47 PM CDT [facility] Comment:OCP Additional Information 07/22/2021 3:47 PM CDT [facility] Comment: Interpreted at [facility], Central Laboratory - [address] [address] Automated Review Failed 07/22/2021 3:47 PM CDT [facility] Comment:Processing failed, m anual screening required. ThinPrep Imaging System, [employer] Note The pap test is a [...] and malignant lesions. 07/22/2021 3:47 PM CDT [facility] Other (Cervical/Vagina l) 07/05/2021 3:15 PM CDT 07/10/2021 7:49 AM CDT Nahum Garcia PA-C PATHOLOGY/CYTOLOGY [facility]AL LABORATORY [address] [place] [address], from Last 3 Months or Most Recently Relevant to Health Maintenance Care Teams Manager Wound Care Relationship Specialty Start Date End Date Clinic, No Pcp Or . PCP - General 11/26/20 Marquise Nick MD [address] [facility] [address] [facility] [address] [place] [address] Endocrinology Endocrinology 04/10/22
[2023-12-24 15:24] LABS: QuantiFERON Mitogen minus NIL 9.95 IU/mL; QuantiFERON NIL 0.05 IU/mL; Quantiferon Plus TB2 minus NIL 0.01 IU/mL (<=0.34); Quantiferon TB Gold Plus Negative (Negative)
== END 2023-12-21 22:57 | disposition home or self-care (01) ==
LOC: NPINS 22:56
PROVIDERS: Nurse Practitioner Family; PCP Physician Assistant Medical; Visit Provider Physician Assistant Medical
DX: Z11.1 Encounter for screening for respiratory tuberculosis (principal)
CPT/HCPCS: 86480